=== PATIENT | male | born 1940 | race Caucasian/White ===

== ENCOUNTER → 2018-02-15 15:51 | Outpatient (CLI) | payer MEDICARE, SELFPAY ==
[2018-02-15 16:10] LABS: Mean Corp Hgb Conc 31.9 g/gl (32-36); Mean Corpuscular Hgb 30.6 pg (27.0-32.0); Mean Corpuscular Volume 95.9 fL (80-94); Mean Platelet Vol. 12.7 fl (6.2-12.0); Platelet Count 195 K/mm3 (150-450); RBC Distribution Width CV 13.5 % (11.6-14.6); RBC Distribution Width SD 47.4 fl (35.1-43.9); Red Blood Count 6.12 M/mm3 (4.6-6.2); White Blood Count 9.4 K/mm3 (4.4-11.0)
[2018-02-15 16:15] LABS: Hematocrit 58.7 % (40-54)
[2018-02-15 16:16] LABS: Scan Indicated on CBC? Y/N NO
[2018-02-15 16:21] LABS: Hemoglobin 18.7 g/dl (13.0-16.5)
[2018-02-15 16:28] LABS: Hemoglobin A1c 6.4 % (4.2-6.3)
[2018-02-15 16:38] LABS: ALB/GLOB Ratio 1.1 RATIO (0.9-2.4); AST(SGOT) 25 U/L (15-37); Alanine Aminotransfer ALT/SGPT 41 U/L (16-61); Albumin, Serum 3.9 g/dL (3.2-5.0); Alkaline Phosphatase 117 U/L (45-117); Anion Gap 7 (5-15); BUN 18 mg/dL (7-18); BUN/Creat Ratio 17.6 RATIO (10-20); Calcium,Total 10.4 mg/dL (8.5-10.1); Chloride 105 mmol/L (98-107); Cholesterol 114 mg/dL (200); Creatinine, Serum 1.02 mg/dL (0.70-1.30); EST Glomerular Filtration Rate 75 mL/min (>60); Est Glom Filt Rate - Afr Amer 91 mL/min (>60); Globulin 3.4 g/dL (2.2-4.2); Glucose 105 mg/dL (74-106); High Density Lipoprotein 29 mg/dL; PSA,Total- Diagnostic 0.43 ng/mL (0.0-4.0); Potassium 4.8 mmol/L (3.5-5.1); Protein, Total 7.3 g/dL (6.4-8.2); Sodium Level 139 mmol/L (136-145); Triglycerides 106 mg/dL; Very Low Density Lipoprotein 21 mg/dL (5-40)
[2018-02-15 17:48] LABS: Absolute Lymphocyte Count 2.85 X10^3/ul (0.83-4.51); Absolute Neutrophil Count 6.9 X10^3/uL (2.0-7.7); Basophil# 0.05 X10^3/uL; Basophil% 0.4 % (0-1); Eosinophil# 0.16 X10^3/uL; Eosinophils% 1.4 % (0-5); Hematocrit 54.7 % (40-54); Hemoglobin 17.9 g/dl (13.0-16.5); Lymphocyte # 2.85 X10^3/ul (4.0); Lymphocyte % 25.5 % (19-41); Mean Corp Hgb Conc 32.7 g/gl (32-36); Mean Corpuscular Hgb 30.4 pg (27.0-32.0); Mean Platelet Vol. 11.9 fl (6.2-12.0); Monocyte% 10.8 % (0-10); Neutrophil # 6.88 X10^3/uL (2.7-7.7); Neutrophil % 61.7 % (47-70); Platelet Count 221 K/mm3 (150-450); RBC Distribution Width CV 13.5 % (11.6-14.6); RBC Distribution Width SD 45.6 fl (35.1-43.9); Red Blood Count 5.88 M/mm3 (4.6-6.2); White Blood Count 11.2 K/mm3 (4.4-11.0)
[2018-02-15 17:49] LABS: POSITIVE COUNT NO; POSITIVE DIFFERENTIAL NO; POSITIVE MORPHOLOGY NO
== END ==
PROVIDERS: Visit Provider Family Medicine
DX: I10 Essential (primary) hypertension (principal); E78.5 Hyperlipidemia, unspecified; N40.1 Benign prostatic hyperplasia with lower urinary tract symptoms; Z79.899 Other long term (current) drug therapy
CPT/HCPCS: 36415; 80053; 80061; 83036; 84153; 85025; 85027

== ENCOUNTER → 2018-02-20 15:57 | Outpatient (CLI) | payer MEDICARE, SELFPAY ==
[2018-02-20 16:03] LABS: Bacteria 0 SEEN /hpf (None Seen)
[2018-02-20 16:07] LABS: Absolute Lymphocyte Count 2.32 X10^3/ul (0.83-4.51); Absolute Neutrophil Count 5.8 X10^3/uL (2.0-7.7); Basophil# 0.05 X10^3/uL; Basophil% 0.5 % (0-1); Eosinophil# 0.12 X10^3/uL; Eosinophils% 1.3 % (0-5); Hematocrit 55.4 % (40-54); Lymphocyte # 2.32 X10^3/ul (4.0); Lymphocyte % 24.7 % (19-41); Mean Corp Hgb Conc 32.9 g/gl (32-36); Mean Corpuscular Hgb 30.4 pg (27.0-32.0); Mean Corpuscular Volume 92.5 fL (80-94); Mean Platelet Vol. 12.6 fl (6.2-12.0); Monocyte# 1.03 X10^3/uL; Neutrophil # 5.83 X10^3/uL (2.7-7.7); Neutrophil % 62.2 % (47-70); Platelet Count 204 K/mm3 (150-450); RBC Distribution Width CV 13.5 % (11.6-14.6); RBC Distribution Width SD 44.7 fl (35.1-43.9); Red Blood Count 5.99 M/mm3 (4.6-6.2); White Blood Count 9.4 K/mm3 (4.4-11.0)
[2018-02-20 16:08] LABS: Color, Urine Yellow (Yellow); Glucose, Dipstick Normal (Normal); Ketone-Dipstick Negative (Negative); Leukocyte Esterase-Dipstick Negative /ul (Negative); Nitrite-Dipstick Negative (Negative); Occult Blood-Urine Negative /ul (Negative); Protein-Dipstick 15 mg/dl (Negative); Urine Bilirubin Dipstick Negative (Negative); Urine Clarity Clear (Clear); Urine Urobilinogen 1 mg/dl (Normal)
[2018-02-20 16:09] LABS: POSITIVE COUNT NO; POSITIVE DIFFERENTIAL NO; POSITIVE MORPHOLOGY NO
[2018-02-20 16:10] LABS: Hemoglobin 18.2 g/dl (13.0-16.5)
[2018-02-20 16:20] LABS: Mucous, Urine RARE /hpf (<or=2+)
[2018-02-20 16:21] LABS: Hyaline Cast 0-5 SEEN /lpf (0-5); Squamous Epithelial Cells - UA 0-5 SEEN /hpf (0-5)
[2018-02-20 16:22] LABS: Red Blood Cells-Urine 0-5 SEEN /hpf (0-5); White Blood Cells 0-5 SEEN /hpf (0-5)
[2018-02-20 17:01] LABS: ALB/GLOB Ratio 1.1 RATIO (0.9-2.4); AST(SGOT) 28 U/L (15-37); Alanine Aminotransfer ALT/SGPT 42 U/L (16-61); Albumin, Serum 3.8 g/dL (3.2-5.0); Alkaline Phosphatase 111 U/L (45-117); Anion Gap 9 (5-15); BUN 18 mg/dL (7-18); BUN/Creat Ratio 18.2 RATIO (10-20); Calcium,Total 10.1 mg/dL (8.5-10.1); Chloride 106 mmol/L (98-107); Creatinine, Serum 0.99 mg/dL (0.70-1.30); EST Glomerular Filtration Rate 78 mL/min (>60); Est Glom Filt Rate - Afr Amer 94 mL/min (>60); Globulin 3.4 g/dL (2.2-4.2); Glucose 80 mg/dL (74-106); Potassium 4.4 mmol/L (3.5-5.1); Protein, Total 7.2 g/dL (6.4-8.2); Sodium Level 139 mmol/L (136-145)
[2018-02-21 09:05] LABS: PTHIN 291.6 pg/mL (18.4-80.1)
== END ==
PROVIDERS: Family Provider Family Medicine; PCP Family Medicine; Visit Provider Family Medicine
DX: N40.0 Benign prostatic hyperplasia without lower urinary tract symptoms (principal); E83.52 Hypercalcemia; D58.2 Other hemoglobinopathies
CPT/HCPCS: 80053; 81001; 82330; 83970; 85025; 87086; 87088

== ENCOUNTER → 2018-02-23 12:51 | Outpatient (CLI) | payer MEDICARE, SELFPAY ==
[2018-02-23 13:10] LABS: ALB/GLOB Ratio 1.2 RATIO (0.9-2.4); AST(SGOT) 24 U/L (15-37); Alanine Aminotransfer ALT/SGPT 42 U/L (16-61); Albumin, Serum 3.9 g/dL (3.2-5.0); Alkaline Phosphatase 122 U/L (45-117); Anion Gap 4 (5-15); BUN 22 mg/dL (7-18); BUN/Creat Ratio 19.5 RATIO (10-20); Calcium,Total 10.1 mg/dL (8.5-10.1); Chloride 106 mmol/L (98-107); Creatinine, Serum 1.13 mg/dL (0.70-1.30); EST Glomerular Filtration Rate 67 mL/min (>60); Est Glom Filt Rate - Afr Amer 81 mL/min (>60); Globulin 3.2 g/dL (2.2-4.2); Glucose 145 mg/dL (74-106); LDH 160 U/L (87-241); Potassium 4.5 mmol/L (3.5-5.1); Protein, Total 7.1 g/dL (6.4-8.2); Sodium Level 137 mmol/L (136-145); Uric Acid 8.3 mg/dL (3.5-7.2)
[2018-02-27 09:35] LABS: Hep C Antibodies <0.1 s/co ratio (0.0-0.9)
== END ==
PROVIDERS: Family Provider Family Medicine; PCP Family Medicine; Visit Provider Internal Medicine Hematology & Oncology
DX: D75.1 Secondary polycythemia (principal); I10 Essential (primary) hypertension; E78.5 Hyperlipidemia, unspecified; E66.9 Obesity, unspecified; Z68.34 Body mass index [BMI] 34.0-34.9, adult
CPT/HCPCS: 80053; 81270; 82668; 83615; 84550; 86803

== ENCOUNTER → 2018-05-04 12:15 | Outpatient (CLI) | payer MEDICARE, SELFPAY ==
[2018-05-04 12:45] LABS: Absolute Lymphocyte Count 2.38 X10^3/ul (0.83-4.51); Absolute Neutrophil Count 5.8 X10^3/uL (2.0-7.7); Basophil# 0.03 X10^3/uL; Basophil% 0.3 % (0-1); Eosinophil# 0.15 X10^3/uL; Eosinophils% 1.7 % (0-5); Hemoglobin 17.2 g/dl (13.0-16.5); Lymphocyte # 2.38 X10^3/ul (4.0); Lymphocyte % 26.3 % (19-41); Mean Corp Hgb Conc 31.9 g/gl (32-36); Mean Corpuscular Hgb 29.9 pg (27.0-32.0); Mean Corpuscular Volume 93.8 fL (80-94); Mean Platelet Vol. 12.2 fl (6.2-12.0); Monocyte# 0.64 X10^3/uL; Monocyte% 7.1 % (0-10); Neutrophil # 5.84 X10^3/uL (2.7-7.7); Neutrophil % 64.5 % (47-70); Platelet Count 194 K/mm3 (150-450); RBC Distribution Width CV 13.5 % (11.6-14.6); RBC Distribution Width SD 46.2 fl (35.1-43.9); Red Blood Count 5.76 M/mm3 (4.6-6.2); White Blood Count 9.1 K/mm3 (4.4-11.0)
[2018-05-04 12:46] LABS: POSITIVE COUNT NO; POSITIVE DIFFERENTIAL NO; POSITIVE MORPHOLOGY NO
[2018-05-04 12:53] LABS: BNP,B-Type NATRIURETIC PEPTIDE 30.1 pg/mL (0-100)
[2018-05-04 12:57] LABS: ALB/GLOB Ratio 1.1 RATIO (0.9-2.4); AST(SGOT) 17 U/L (15-37); Alanine Aminotransfer ALT/SGPT 35 U/L (16-61); Albumin, Serum 3.8 g/dL (3.2-5.0); Alkaline Phosphatase 87 U/L (45-117); Anion Gap 7 (5-15); BUN 20 mg/dL (7-18); BUN/Creat Ratio 18.9 RATIO (10-20); Calcium,Total 10.4 mg/dL (8.5-10.1); Chloride 108 mmol/L (98-107); Creatinine, Serum 1.06 mg/dL (0.70-1.30); EST Glomerular Filtration Rate 72 mL/min (>60); Est Glom Filt Rate - Afr Amer 87 mL/min (>60); Globulin 3.4 g/dL (2.2-4.2); Glucose 112 mg/dL (74-106); Potassium 4.7 mmol/L (3.5-5.1); Protein, Total 7.2 g/dL (6.4-8.2); Sodium Level 140 mmol/L (136-145)
== END ==
PROVIDERS: Family Provider Family Medicine; PCP Family Medicine; Visit Provider Family Medicine
DX: R06.09 Other forms of dyspnea (principal); I25.10 Atherosclerotic heart disease of native coronary artery without angina pectoris
CPT/HCPCS: 80053; 83880; 85025

== ENCOUNTER → 2018-05-14 10:57 | Outpatient (CLI) | payer MEDICARE, SELFPAY | PROVIDERS: Family Provider Family Medicine; PCP Family Medicine; Visit Provider Ophthalmology | DX: Z01.818 Encounter for other preprocedural examination (principal); Z53.9 Procedure and treatment not carried out, unspecified reason ==

== ENCOUNTER 2018-05-24 09:51 | Day surgery (SDC) | payer MEDICARE, SELFPAY ==
[2018-05-17 09:12] VITALS: BP 123/73; PULSE 66; RESP 16; TEMP 36.6; O2SAT 94; BMI 30.9
[2018-05-24 10:35] VITALS: BP 126/74; PULSE 87; RESP 18; TEMP 37.1; O2SAT 95; BMI 30.9
[2018-05-24 11:01] LABS: Bedside Glucose 109 mg/dL (70-110)
[2018-05-24] MEDS: Tetracaine 0.5% Ophthalmic Bottle 1 DRP (11:52)
[2018-05-24 12:20] VITALS: BP 126/74; BP 132/77; PULSE 70; RESP 16; TEMP 36.9; O2SAT 94
[2018-05-24 12:25] VITALS: BP 116/68; BP 126/74; PULSE 69; RESP 18; O2SAT 92
--- NOTE | 2018-05-24 12:28 | DCINST_ITS ---
Allergies/Adverse Reactions: Allergies codeine Allergy (Verified 05/17/18 09:05) unknown Medications to take at Discharge aspirin 81 mg tablet,delayed release 81 mg PO BID 11/02/17 nitroglycerin 0.4 mg sublingual tablet 0.4 mg SUBLINGUAL Q5M PRN 10 Days #2880 tab 11/02/17 metoprolol succinate ER 50 mg tablet,extended release 24 hr 50 mg PO BID 90 Days #180 tab 11/08/17 Clopidogrel Bisulfate [Clopidogrel] 75 mg PO DAILY 05/17/18 Lisinopril [Zestril] 5 mg PO BID 05/17/18 Metformin HCl [Glucophage Xr] 500 mg PO BID 05/17/18 Pravastatin [Pravachol] 40 mg PO DAILY 05/17/18 Tamsulosin HCl [Flomax] 0.4 mg PO DAILY 05/17/18 Cataract Instructions: -Take a pain reliever such as Tylenol, Aspirin or Ibuprofen if needed for eye aching or pain. If this is not enough relief for you pain, call your doctor (or the doctor outreach and education social worker), even at night. -You are scheduled for a follow-up appointment at [facility] the day after surgery. You should have someone drive you. -Transient pain and irritation are due to the incision that was made at the time of surgery and do not indicate any trouble. Our office numbers are . If there is no answer, or if it is after our normal business hours, call your surgeon. My home phone number is: Dr. Suzi Jarquin INSTRUCTIONS FOLLOWING TOPICAL ANESTHETIC CATARACT SURGERY Protect operated eye with glasses or metal shield at all times. Instill one drop of Polytrim (or other antibiotic drop), one drop of Prednisolone and one drop of Acular in the operated eye four times a day ( breakfast, lunch, dinner, and bedtime) until the doctor tells you to quit or decrease them. Wait 3-5 minutes between each drop. Please begin these immediately upon arriving at home. if your surgery is in t he afternoon, try to use the drops at least three more times the day of surgery and again the following morning before your appointment. INSTRUCTIONS FOLLOWING RETROBULBAR CATARACT SURGERY Keep the eye patch and metal shield on until you see your surgeon the day after surgery - these will be removed in the office that day. Do not drive while the patch is on your eye. You will be instructed about the use of drops for the operated eye at that visit. Primary Care Physician: Thomas Jara MD [Primary Care Provider] -
[2018-05-24 12:30] VITALS: BP 109/77; BP 126/74; PULSE 64; RESP 16; O2SAT 92
--- NOTE | 2018-05-24 12:30 | PCM.OP.BLANK ---
Operative Report Date of Procedure: 05/24/18 Preoperative Diagnosis: Cataract Left Eye, Persistent Miosis Postoperative Diagnosis: Same Procedure: Cataract Extraction via phacoemulsification with intraocular lens implant Left Eye- complex case with expansion of miotic pupil Anesthesia: Mac/topical Complications: none Estimated Blood Loss: none Indications for procedure: This is a 78 year old male with history of worsening vision in the left eye secondary to cataract. After discussion of the risks, benefits, and alternatives procedure the patient agreed to proceed with cataract extraction of the left eye. Description of procedure: The patient was brought to the operative room where a time out was performed prior to the start of the procedure. Anesthesia team induced light sedation, and the eye was prepped and draped in the normal sterile fashion for eye surgery. A saritha blade knife was used to create a paracentesis incision. Preservative free lidocaine followed by viscoelastic was introduced into the anterior chamber. A keratome was used to create a clear corneal biplanar incision at the temporal limbus. The pupil was noted to be persistently miotic, and patient was taking flomax for enlarged prostate, therefore a malyugian ring was inserted in order to capture and maintain pupillary dilation. A cystotome was used to begin the capsulorhexis, which was completed in a continuous curvilinear fashion using the capsulorhexis forceps. BSS on a lamar cannula was used to hydrate beneath the lens capsule until the lens was noted to be freely mobile in the capsular bag. Phacoemulsification was used to remove the lens in a divide and conquer technique. Irrigation and aspiration was used to remove the remaining cortical material. The capsular bag was inflated with provisc, and a tecnis PCBOO 21.0 diopter lens was placed in the capsular bag and adjusted using a ai hook. The malyugian ring was disinserted from the iris and removed from the anterior chamber. The remaining viscoelastic material was removed. The wounds were hydrated and noted to be watertight with the use of a wexcell sponge. The patient was taken to the recovery room in a stable condition with instructions to follow up in the clinic for the scheduled postoperative visit.
[2018-05-24 12:35] VITALS: BP 114/77; BP 126/74; PULSE 69; RESP 16; TEMP 36.7; O2SAT 92
[2018-05-24 13:15] VITALS: BP 114/77; BP 126/74; PULSE 69; RESP 16; TEMP 36.7; O2SAT 92
== END 2018-05-24 13:18 | disposition home or self-care (01) ==
LOC: SDC 09:57 → AC 10:01
PROVIDERS: Family Provider Family Medicine; PCP Family Medicine; Visit Provider Ophthalmology
PROC: (CPT 66982; principal; 2018-05-24 11:20)
DX: H25.813 Combined forms of age-related cataract, bilateral (principal); H43.811 Vitreous degeneration, right eye; H04.523 Eversion of bilateral lacrimal punctum; H10.45 Other chronic allergic conjunctivitis; H57.03 Miosis; E11.9 Type 2 diabetes mellitus without complications; I25.10 Atherosclerotic heart disease of native coronary artery without angina pectoris; I25.2 Old myocardial infarction; Z95.1 Presence of aortocoronary bypass graft; Z87.891 Personal history of nicotine dependence
CPT/HCPCS: 66982; 82962

== ENCOUNTER → 2018-05-29 20:00 | Outpatient (CLI) | payer MEDICARE, SELFPAY | PROVIDERS: Family Provider Family Medicine; PCP Family Medicine; Visit Provider Family Medicine | DX: G47.10 Hypersomnia, unspecified (principal) | CPT/HCPCS: 95810 ==

== ENCOUNTER 2018-06-14 11:08 | Day surgery (SDC) | payer MEDICARE, SELFPAY ==
[2018-06-14] VITALS (7 sets, daily range): BP systolic 107–138; BP diastolic 70–97; PULSE 72–85; RESP 16–18; TEMP 36.6–37.1; O2SAT 92–97; BMI 31.0
[2018-06-14 12:15] LABS: Bedside Glucose 90 mg/dL (70-110)
[2018-06-14] MEDS: Tetracaine 0.5% Ophthalmic Bottle 1 DRP OP (12:45)
--- NOTE | 2018-06-14 13:16 | DCINST_ITS ---
Allergies/Adverse Reactions: Allergies codeine Allergy (Verified 06/14/18 11:35) unknown Medications to take at Discharge aspirin 81 mg tablet,delayed release 81 mg PO BID 11/02/17 nitroglycerin 0.4 mg sublingual tablet 0.4 mg SUBLINGUAL Q5M PRN 10 Days #2880 tab 11/02/17 metoprolol succinate ER 50 mg tablet,extended release 24 hr 50 mg PO BID 90 Days #180 tab 11/08/17 Clopidogrel Bisulfate [Clopidogrel] 75 mg PO DAILY 05/17/18 Lisinopril [Zestril] 5 mg PO BID 05/17/18 Metformin HCl [Glucophage Xr] 500 mg PO BID 05/17/18 Pravastatin [Pravachol] 40 mg PO DAILY 05/17/18 Tamsulosin HCl [Flomax] 0.4 mg PO DAILY 05/17/18 Cataract Instructions: -Take a pain reliever such as Tylenol, Aspirin or Ibuprofen if needed for eye aching or pain. If this is not enough relief for you pain, call your doctor (or the doctor sheet metal contractor), even at night. -You are scheduled for a follow-up appointment at [facility] the day after surgery. You should have someone drive you. -Transient pain and irritation are due to the incision that was made at the time of surgery and do not indicate any trouble. Our office numbers are . If there is no answer, or if it is after our normal business hours, call your surgeon. My home phone number is: Dr. Suzi Jarquin INSTRUCTIONS FOLLOWING TOPICAL ANESTHETIC CATARACT SURGERY Protect operated eye with glasses or metal shield at all times. Instill one drop of Polytrim (or other antibiotic drop), one drop of Prednisolone and one drop of Acular in the operated eye four times a day ( breakfast, lunch, dinner, and bedtime) until the doctor tells you to quit or decrease them. Wait 3-5 minutes between each drop. Please begin these immediately upon arriving at home. if your surgery is in t he afternoon, try to use the drops at least three more times the day of surgery and again the following morning before your appointment. INSTRUCTIONS FOLLOWING RETROBULBAR CATARACT SURGERY Keep the eye patch and metal shield on until you see your surgeon the day after surgery - these will be removed in the office that day. Do not drive while the patch is on your eye. You will be instructed about the use of drops for the operated eye at that visit. Primary Care Physician: Thomas Jara MD [Primary Care Provider] -
--- NOTE | 2018-06-14 13:17 | PCM.OP.BLANK ---
Operative Report Date of Procedure: 06/14/18 Preoperative Diagnosis: Cataract Right Eye Postoperative Diagnosis: Same Procedure: Cataract Extraction via phacoemulsification with intraocular lens implant Right Eye, Complex Case- expansion of miotic pupil Anesthesia: Mac/topical Complications: none Estimated Blood Loss: none Indications for procedure: This is a 78 year old male with history of worsening vision in the right eye secondary to cataract. After discussion of the risks, benefits, and alternatives procedure the patient agreed to proceed with cataract extraction of the right eye. Description of procedure: The patient was brought to the operative room where a time out was performed prior to the start of the procedure. Anesthesia team induced light sedation, and the eye was prepped and draped in the normal sterile fashion for eye surgery. A saritha blade knife was used to create a paracentesis incision. Preservative free lidocaine followed by viscoelastic was introduced into the anterior chamber. A keratome was used to create a clear corneal biplanar incision at the temporal limbus. The pupil was noted to be persistently miotic and therefore a malyugian ring was inserted in order to maintain pupillary dilation and expand the pupil. A cystotome was used to begin the capsulorhexis, which was completed in a continuous curvilinear fashion using the capsulorhexis forceps. BSS on a lamar cannula was used to hydrate beneath the lens capsule until the lens was noted to be freely mobile in the capsular bag. Phacoemulsification was used to remove the lens in a divide and conquer technique. Irrigation and aspiration was used to remove the remaining cortical material. The capsular bag was inflated with provisc, and a tecnis PCBOO 21.5 diopter lens was placed in the capsular bag and adjusted using a ai hook. The malyugian ring was disinserted from the iris and removed from the anterior chamber uneventfully. The remaining viscoelastic material was removed. The wounds were hydrated and noted to be watertight with the use of a wexcell sponge. The patient was taken to the recovery room in a stable condition with instructions to follow up in the clinic for the scheduled postoperative visit.
== END 2018-06-14 14:03 | disposition home or self-care (01) ==
LOC: SDC 11:11 → AC 11:14
PROVIDERS: Family Provider Family Medicine; PCP Family Medicine; Visit Provider Ophthalmology
PROC: (CPT 66984; principal; 2018-06-14 12:35)
DX: H04.123 Dry eye syndrome of bilateral lacrimal glands (principal); H25.811 Combined forms of age-related cataract, right eye; N40.0 Benign prostatic hyperplasia without lower urinary tract symptoms; I25.10 Atherosclerotic heart disease of native coronary artery without angina pectoris; I10 Essential (primary) hypertension; Z95.1 Presence of aortocoronary bypass graft; Z87.891 Personal history of nicotine dependence; Z98.42 Cataract extraction status, left eye
CPT/HCPCS: 00142; 66984; 82962; J7120

== ENCOUNTER → 2018-06-22 20:30 | Outpatient (CLI) | payer MEDICARE, SELFPAY ==
[2018-06-22] MEDS: Zolpidem Tartrate 5 MG Tablet PO (22:00)
== END ==
PROVIDERS: Family Provider Family Medicine; PCP Family Medicine; Visit Provider Family Medicine
DX: G47.33 Obstructive sleep apnea (adult) (pediatric) (principal)
CPT/HCPCS: 95811

== ENCOUNTER → 2018-07-05 10:52 | Outpatient (CLI) | payer MEDICARE, SELFPAY ==
[2018-07-05 12:48] LABS: AST(SGOT) 23 U/L (15-37); Alanine Aminotransfer ALT/SGPT 42 U/L (16-61); Albumin, Serum 3.7 g/dL (3.2-5.0); Alkaline Phosphatase 70 U/L (45-117); Bilirubin, Direct 0.14 mg/dL (0.00-0.30); Cholesterol 101 mg/dL (200); Globulin 3.4 g/dL (2.2-4.2); High Density Lipoprotein 27 mg/dL; Protein, Total 7.1 g/dL (6.4-8.2); Triglycerides 78 mg/dL; Very Low Density Lipoprotein 16 mg/dL (5-40)
== END ==
PROVIDERS: Family Provider Family Medicine; PCP Family Medicine; Visit Provider Physician Assistant Medical
DX: I25.5 Ischemic cardiomyopathy (principal); I25.10 Atherosclerotic heart disease of native coronary artery without angina pectoris; E78.00 Pure hypercholesterolemia, unspecified
CPT/HCPCS: 36415; 80061; 80076

== ENCOUNTER → 2018-12-31 09:21 | Outpatient (CLI) | payer MEDICARE, SELFPAY ==
[2018-10-08 13:31] VITALS: BMI 30.2
[2018-12-31 13:17] LABS: AST(SGOT) 27 U/L (15-37); Alanine Aminotransfer ALT/SGPT 55 U/L (16-61); Alkaline Phosphatase 70 U/L (45-117); Cholesterol 95 mg/dL (200); High Density Lipoprotein 31 mg/dL; Triglycerides 74 mg/dL; Very Low Density Lipoprotein 15 mg/dL (5-40)
== END ==
PROVIDERS: Family Provider Family Medicine; PCP Family Medicine; Referring Provider Physician Assistant Medical; Visit Provider Physician Assistant Medical
DX: E78.5 Hyperlipidemia, unspecified (principal)
CPT/HCPCS: 36415; 80061; 80076

== ENCOUNTER → 2019-02-22 15:26 | Outpatient (CLI) | payer MEDICARE, SELFPAY ==
[2018-10-08 13:31] VITALS: BMI 30.2
[2019-02-22 16:07] LABS: Anion Gap 6 (5-15); BUN 23 mg/dL (7-18); BUN/Creat Ratio 20.2 RATIO (10-20); Chloride 104 mmol/L (98-107); Creatinine, Serum 1.14 mg/dL (0.70-1.30); EST Glomerular Filtration Rate 66 mL/min (>60); Est Glom Filt Rate - Afr Amer 80 mL/min (>60); Glucose 80 mg/dL (74-106); PSA,Total- Diagnostic 0.52 ng/mL (0.0-4.0); Potassium 4.5 mmol/L (3.5-5.1); Sodium Level 137 mmol/L (136-145); Uric Acid 9.2 mg/dL (3.5-7.2)
== END ==
PROVIDERS: Family Provider Family Medicine; PCP Family Medicine; Referring Provider Family Medicine; Visit Provider Family Medicine
DX: I10 Essential (primary) hypertension (principal); N40.0 Benign prostatic hyperplasia without lower urinary tract symptoms; M10.00 Idiopathic gout, unspecified site
CPT/HCPCS: 80048; 84153; 84550

== ENCOUNTER 2019-04-02 13:43 | Emergency (ER) | payer MEDICARE, SELFPAY ==
[2018-10-08 13:31] VITALS: BMI 30.2
[2019-04-02 13:45] VITALS: BP 141/71; PULSE 100; PULSE 107; RESP 18; TEMP 36.6; O2SAT 92; O2SAT 93; BMI 30.2
--- NOTE | 2019-04-02 15:28 | ED.VIS.GEN ---
History of Present Illness Chief Complaint: Wound Informant: Patient, Significant Other Onset: Days Context: Sudden Onset Timing: Continuous Quality: Large bruise medial proximal right leg and distal thigh Location: Read above Current Severity: Mild Maximum Severity: Mild Worsened by: Blunt trauma and antiplatelet medication Relieved by: nothing Associated Symptoms: No associated symptoms Narrative: Patient was sent to the emergency room because of bruise medial right lower extremity. He admits to blunt trauma. He is on aspirin and Plavix. He denies chest pain, shortness of breath. He denies orthostatic symptoms. He is on no anticoagulant. He denies paresthesia, anesthesia motor weakness. He has no other complaints. states they were sent for an ultrasound. also states that the office staff frightened her and told her to bring her immediately. Prior similar symptoms: No Recent Illness/Hospitalization: No - Past Medical History (1) Arteriosclerotic heart disease (ASHD) Status: Chronic Comment: CABG x 3 MOSS-LAD, SVG-PDA aand Ramus Marginals 04/10/2010:PCI-[facility]-Mid LAD 09/24/2009 (2) H/O coronary artery bypass surgery Status: Chronic Comment: CABG x 3 MOSS-LAD, SVG-PDA aand Ramus Marginals 04/10/2010 (3) HLD (hyperlipidemia) Status: Chronic (4) HTN (hypertension) Status: Chronic (5) Ischemic cardiomyopathy Status: Chronic (6) Paroxysmal atrial fibrillation Status: Chronic Past Medical History - Allergies and Home Meds Allergies/Adverse Reactions: Allergies codeine Allergy (Verified 04/02/19 13:44) unknown Primary Care Physician: Thomas Jara MD [Primary Care Provider] - Prior records reviewed: Yes Surgical History: noncontributory Lives: Spouse/ Significant Other Smoking Status: Former smoker Alcohol: None Review of Systems General: Denies: Chills, Fever, Malaise, Sweats Eyes: Denies: Visual changes - bilaterally, Blurred Vision - bilaterally, Diplopia ENT: Denies: Bilateral ear pain, Rhinorrhea, Sore throat Cardiovascular: Denies: Chest pain, Palpitations Respiratory: Denies: Dyspnea, Cough, Dyspnea on exertion Skin: Denies: Rash, Wounds Neurological: Denies: Weakness, Parasthesia, Numbness Hematologic: Denies: Easy bruising, Easy bleeding Allergy: Denies: Uticaria, Swelling of the mouth Physical Exam Vital Signs/Narrative: Vital Signs Temp Pulse Resp BP Pulse Ox 04/02/19 13:45 97.9 F 100 18 141/71 H 92 Inital Vital Signs reviewed: Yes General: Well nourished, Well developed, No Acute Distress Head: Normocephalic, Atraumatic Eyes: Perrl, EOMI. Negative for: Pale conjunctiva, Scleral icterus, - ENT: Moist mucous membranes, No rhinorrhea Neck: Supple, Nontender, No lymphadenopathy, No JVD Cardiovascular: Regular rate, Regular rhythm, No murmurs, Normal S1, Normal S2 Respiratory: No distress, CTA bilaterally, Chest nontender Extremities: Nontender, No edema, - - There is a large ecchymotic area. There is a small palpable hematoma distal anterior right thigh. The patella is not ballotable. Is no effusion. Is no laxity with varus valgus stress testing. Jose Juan's test is negative. DP and PT pulse are palpable. There is no evidence of infection. Skin: Normal color, No rash, Trauma. Negative for: Cyanosis, Jaundice Neurological: Alert, Oriented x3, Cranial nerves II-XII grossly intact, Normal Strength, Normal Sensation Psychological: Normal affect, Normal Mood Diagnostic/Tx/Re-eval Laboratory Results 04/02/19 16:03 WBC 11.4 H RBC 5.04 Hgb 15.1 Hct 46.3 MCV 91.9 MCH 30.0 MCHC 32.6 RDW 13.7 RDW Differential 45.5 H Plt Count 236 MPV 12.0 Immature Gran % (Auto) 0.200 Neut % (Auto) 69.1 Lymph % (Auto) 17.3 L [place] % (Auto) 11.3 H Eos % (Auto) 1.7 Baso % (Auto) 0.4 Absolute Neuts (auto) 7.9 H Absolute Lymphs (auto) 1.97 Total Counted Not Reportable - Medical Decision Making CBC was obtained to assess H&H as well as platelet count. Will reassess once laboratory tests are available. CBC is unremarkable. Patient has a hematoma secondary to minimal trauma because he is on Plavix and aspirin. Will discharge with appropriate home-going instructions ED Disposition - Plan for ED Patient: Disposition: Home or Assisted Living Diagnosis: Contusion of right lower leg, initial encounter, Traumatic hematoma of right lower leg Instructions: ED Contusion Lower Ext Referrals: Thomas Jara MD [Primary Care Provider] - 10-14 Days if not better
[2019-04-02 16:28] VITALS: BP 142/87; PULSE 82; RESP 16; O2SAT 96
[2019-04-02 16:31] LABS: Absolute Lymphocyte Count 1.97 X10^3/ul (0.83-4.51); Absolute Neutrophil Count 7.9 X10^3/uL (2.0-7.7); Basophil# 0.04 X10^3/uL; Basophil% 0.4 % (0-1); Eosinophil# 0.19 X10^3/uL; Eosinophils% 1.7 % (0-5); Hematocrit 46.3 % (40-54); Hemoglobin 15.1 g/dl (13.0-16.5); Lymphocyte # 1.97 X10^3/ul (4.0); Lymphocyte % 17.3 % (19-41); Mean Corp Hgb Conc 32.6 g/gl (32-36); Mean Corpuscular Volume 91.9 fL (80-94); Monocyte# 1.29 X10^3/uL; Monocyte% 11.3 % (0-10); Neutrophil # 7.91 X10^3/uL (2.7-7.7); Neutrophil % 69.1 % (47-70); Platelet Count 236 K/mm3 (150-450); RBC Distribution Width CV 13.7 % (11.6-14.6); RBC Distribution Width SD 45.5 fl (35.1-43.9); Red Blood Count 5.04 M/mm3 (4.6-6.2); White Blood Count 11.4 K/mm3 (4.4-11.0)
[2019-04-02 16:32] LABS: POSITIVE COUNT NO; POSITIVE DIFFERENTIAL NO; POSITIVE MORPHOLOGY NO
== END 2019-04-02 18:09 | disposition home or self-care (01) ==
PROVIDERS: Emergency Provider Emergency Medicine; Family Provider Family Medicine; PCP Family Medicine
DX: S80.11XA Contusion of right lower leg, initial encounter (principal); Y29.XXXA Contact with blunt object, undetermined intent, initial encounter; I48.0 Paroxysmal atrial fibrillation; I25.5 Ischemic cardiomyopathy; I10 Essential (primary) hypertension; E78.5 Hyperlipidemia, unspecified; I25.10 Atherosclerotic heart disease of native coronary artery without angina pectoris; Z95.1 Presence of aortocoronary bypass graft; Z88.5 Allergy status to narcotic agent; Z87.891 Personal history of nicotine dependence; Z79.02 Long term (current) use of antithrombotics/antiplatelets; Z79.82 Long term (current) use of aspirin
CPT/HCPCS: 36415; 85025; 99282

== ENCOUNTER → 2019-05-17 10:41 | Outpatient (CLI) | payer MEDICARE, SELFPAY ==
[2019-05-17 11:18] LABS: 24HR UR TOTAL VOLUME 2250 ml; Calcium Urine pH Range 1
== END ==
PROVIDERS: Family Provider Family Medicine; PCP Family Medicine
DX: E21.0 Primary hyperparathyroidism (principal)
CPT/HCPCS: 82340

== ENCOUNTER → 2019-06-17 12:25 | Outpatient (CLI) | payer MEDICARE, SELFPAY ==
[2019-06-17 14:16] LABS: Albumin, Serum 3.7 g/dL (3.2-5.0); BUN 18 mg/dL (7-18); BUN/Creat Ratio 16.2 RATIO (10-20); Calcium,Total 10.8 mg/dL (8.5-10.1); Chloride 106 mmol/L (98-107); Creatinine, Serum 1.11 mg/dL (0.70-1.30); EST Glomerular Filtration Rate 68 mL/min (>60); Est Glom Filt Rate - Afr Amer 82 mL/min (>60); Glucose 104 mg/dL (74-106); Potassium 4.8 mmol/L (3.5-5.1); Sodium Level 140 mmol/L (136-145)
== END ==
PROVIDERS: Family Provider Family Medicine; PCP Family Medicine
DX: E21.0 Primary hyperparathyroidism (principal); E55.9 Vitamin D deficiency, unspecified
CPT/HCPCS: 80069; 82306

== ENCOUNTER → 2019-08-27 09:06 | Outpatient (CLI) | payer MEDICARE, SELFPAY ==
[2019-07-18 12:37] VITALS: BMI 29.4
[2019-08-27 11:08] LABS: AST(SGOT) 25 U/L (15-37); Alanine Aminotransfer ALT/SGPT 50 U/L (16-61); Albumin, Serum 3.8 g/dL (3.2-5.0); Alkaline Phosphatase 75 U/L (45-117); Bilirubin, Direct 0.16 mg/dL (0.00-0.30); Cholesterol 116 mg/dL (200); High Density Lipoprotein 30 mg/dL; Protein, Total 6.8 g/dL (6.4-8.2); Triglycerides 90 mg/dL; Very Low Density Lipoprotein 18 mg/dL (5-40)
== END ==
PROVIDERS: Family Provider Family Medicine; PCP Family Medicine; Referring Provider Internal Medicine Cardiovascular Disease; Visit Provider Internal Medicine Cardiovascular Disease
DX: E78.00 Pure hypercholesterolemia, unspecified (principal)
CPT/HCPCS: 36415; 80061; 80076

== ENCOUNTER → 2020-08-25 | Outpatient (CLI) | payer MEDICARE, SELFPAY ==
[2019-07-18 12:37] VITALS: BMI 29.4
[2020-08-25 12:58] LABS: ALB/GLOB Ratio 1.1 RATIO (0.9-2.4); AST(SGOT) 24 U/L (15-37); Alanine Aminotransfer ALT/SGPT 51 U/L (16-61); Albumin, Serum 3.8 g/dL (3.2-5.0); Alkaline Phosphatase 77 U/L (45-117); Anion Gap 2 (5-15); BUN 18 mg/dL (7-18); BUN/Creat Ratio 16.7 RATIO (10-20); Calcium,Total 11.1 mg/dL (8.5-10.1); Chloride 106 mmol/L (98-107); Cholesterol 104 mg/dL (200); Creatinine, Serum 1.08 mg/dL (0.70-1.30); EST Glomerular Filtration Rate 70 mL/min (>60); Est Glom Filt Rate - Afr Amer 84 mL/min (>60); Globulin 3.4 g/dL (2.2-4.2); Glucose 117 mg/dL (74-106); High Density Lipoprotein 36 mg/dL; PSA,Total - Annual Screen 0.23 ng/mL (0.00-4.00); Potassium 4.4 mmol/L (3.5-5.1); Protein, Total 7.2 g/dL (6.4-8.2); Sodium Level 139 mmol/L (136-145); Triglycerides 80 mg/dL; Very Low Density Lipoprotein 16 mg/dL (5-40)
[2020-08-25 12:59] LABS: Hemoglobin A1c 5.7 % (3.8-5.6)
== END | disposition home or self-care (01) ==
LOC: LABSPEC 12:09
PROVIDERS: PCP Family Medicine; Referring Provider Family Medicine; Visit Provider Family Medicine
DX: N40.0 Benign prostatic hyperplasia without lower urinary tract symptoms (principal); R73.03 Prediabetes
CPT/HCPCS: 80053; 80061; 83036; 84153; G0103

== ENCOUNTER → 2020-09-18 06:32 | Outpatient (CLI) | payer MEDICARE, SELFPAY ==
[2020-09-01 15:06] VITALS: BMI 29.9
--- NOTE | 2020-09-18 06:33 | ECHOCS_ITS ---
Reason For Study: S/P CABG Procedure This was a 2D Doppler, Color Flow transthoracic echocardiogram. The study was technically difficult. Due to poor accoustic windows. Contrast injection was performed. Exam performed in department. Left Ventricle Normal LV size. Left ventricular systolic function is normal. The estimated ejection fraction is 65 %. Stage 1 diastolic dysfunction. No regional wall motion abnormalities noted. Right Ventricle Normal RV size. Normal systolic function. Atria Normal left atrium. Normal right atrium. Mitral Valve Normal mitral valve. Tricuspid Valve Normal tricuspid valve. Aortic Valve Trisinus/trileaflet aortic valve. Mild focal aortic valve calcification. Pulmonic Valve Normal pulmonic valve. Great Vessels Normal aortic root. The pulmonary artery is normal size. Normal inferior vena cava. Pericardium/Pleural No pericardial effusion. Medication 22 gauge I.V. with prn adaptor inserted into right arm. Diluted definity 3.0ml given slow IV push to enhance endocardial definition. MMode/2D Measurements & Calculations LVIDd: 4.5 cm IVSd: 1.1 cm Ao root diam: 3.2 cm LVIDs: 3.3 cm LVPWd: 1.0 cm FS: 28.4 % LAV(MOD-bp): 46.3 ml LA A4 area: 17.3 cm2 LA dimension(2D): 3.8 cm LAV(MOD-bp) Indexed: 23.5 ml/m2 LAV(MOD-sp2): 45.9 ml LAV(MOD-sp4): 45.8 ml Time Measurements MV dec time: 0.14 sec Doppler Measurements & Calculations MV E max dashawn: 60.0 cm/sec Lat Peak E' Dashawn: 11.9 cm/sec Med Peak E' Dashawn: 6.6 cm/sec MV A max dashawn: 95.1 cm/sec E/E' lat: 5.0 E/E' med: 9.1 MV E/A: 0.63 Ao V2 max: 164.2 cm/sec LV V1 max: 116.0 cm/sec PA V2 max: 104.5 cm/sec Ao max P.8 mmHg LV V1 max P.4 mmHg Interpretation Summary Normal LV size. Left ventricular systolic function is normal. The estimated ejection fraction is 65 %. Stage 1 diastolic dysfunction. Contrast injection was performed. Ordering Physician: Sravan Jc Referring Physician: enrique Jara Performed By: Dorcas Hogan, ROGERIO, RVT
--- NOTE | 2020-09-18 12:53 | STRESSREP_ITS ---
Stress Test Report Pharmacologic myocardial perfusion stress test. 80-year-old man with a history of coronary artery bypass surgery. Stress protocol: Resting EKG demonstrates sinus rhythm with a rate of 81 bpm resting blood pressure is 130/70 mmHg. 0.4 mg of regadenoson was infused per usual protocol followed by rapid intravenous saline flush injection continuous EKG monitoring was performed. The maximum heart rate attained was 113 bpm which was 81% of max impacted heart rate the maximum workload was 1 metabolic equivalent. At rest there were no ST or T wave changes noted suggest abnormal flow reserve at peak infusion nonspecific ST-T wave changes were noted. The final blood pressure was 128/82 mmHg. Myocardial perfusion protocol. 11.3 mCi of technetium 99m sestamibi was injected at rest. 0.4 mg of regadenoson was infused per usual protocol at peak infusion 31.7 mCi of technetium 99m sestamibi was injected stress images were obtained stress and rest images were reconstructed and compared in the short axis vertical long horizontal long axis. Gated images were also obtained. Perfusion SPECT analysis: Review of the stress images demonstrate normal uptake of tracer noted in all areas of the myocardium the resting images similarly demonstrate normal uptake of tracer noted in all areas of the myocardium. No reversibility is noted guzman ggest ischemia no previous infarct is noted. Gated SPECT analysis: The gated ejection fraction is 75%. Conclusion: Normal pharmacologic myocardial perfusion stress test. Preserved ejection fraction.
== END ==
PROVIDERS: PCP Family Medicine; Referring Provider Internal Medicine Cardiovascular Disease; Visit Provider Internal Medicine Cardiovascular Disease
DX: I25.118 Atherosclerotic heart disease of native coronary artery with other forms of angina pectoris (principal); Z95.1 Presence of aortocoronary bypass graft
CPT/HCPCS: 78452; 93017; 93306; A9500; Q9957; A4216; C8929; J2785

== ENCOUNTER → 2021-03-01 11:45 | Outpatient (CLI) | payer MEDICARE, SELFPAY ==
[2020-09-01 15:06] VITALS: BMI 29.9
[2021-03-01 12:31] LABS: Hemoglobin A1c 5.7 % (3.8-5.6)
== END ==
PROVIDERS: PCP Family Medicine; Referring Provider Family Medicine; Visit Provider Family Medicine
DX: R73.03 Prediabetes (principal)
CPT/HCPCS: 83036

== ENCOUNTER → 2021-03-09 16:11 | Outpatient (CLI) | payer MEDICARE, SELFPAY ==
[2020-09-01 15:06] VITALS: BMI 29.9
[2021-03-09 17:56] LABS: Vitamin D,25 Hydroxy 59.9 ng/mL
[2021-03-10 09:14] LABS: PTHIN 139.1 pg/mL (18.4-80.1)
== END ==
PROVIDERS: PCP Family Medicine
DX: E55.9 Vitamin D deficiency, unspecified (principal); E21.0 Primary hyperparathyroidism
CPT/HCPCS: 82306; 83970

== ENCOUNTER → 2021-03-11 | Outpatient (CLI) | payer MEDICARE, SELFPAY ==
[2020-09-01 15:06] VITALS: BMI 29.9
[2021-03-11 15:06] LABS: 24HR UR TOTAL VOLUME 750 ml; Calcium Urine pH Range 1; Urine Calcium (Random) < 5.0 (Not Estab.)
[2021-03-12 06:16] LABS: (24 HR) Urine Calcium < 5.0 mg/24 HR (42.0-353.0)
== END | disposition home or self-care (01) ==
LOC: LABSPEC 13:38
PROVIDERS: PCP Family Medicine
DX: E83.52 Hypercalcemia (principal)
CPT/HCPCS: 81050; 82340

== ENCOUNTER → 2021-09-02 09:44 | Outpatient (CLI) | payer MEDICARE, SELFPAY ==
[2021-09-02 11:10] LABS: AST(SGOT) 12 U/L (15-37); Alanine Aminotransfer ALT/SGPT 28 U/L (16-61); Albumin, Serum 3.5 g/dL (3.2-5.0); Alkaline Phosphatase 70 U/L (45-117); Bilirubin, Direct 0.18 mg/dL (0.00-0.30); Cholesterol 93 mg/dL (200); Globulin 3.2 g/dL (2.2-4.2); High Density Lipoprotein 30 mg/dL; Protein, Total 6.7 g/dL (6.4-8.2); Triglycerides 89 mg/dL; Very Low Density Lipoprotein 18 mg/dL (5-40)
== END ==
PROVIDERS: PCP Family Medicine; Referring Provider Internal Medicine Cardiovascular Disease; Visit Provider Internal Medicine Cardiovascular Disease
DX: E78.00 Pure hypercholesterolemia, unspecified (principal)
CPT/HCPCS: 36415; 80061; 80076

== ENCOUNTER → 2021-09-08 12:22 | Outpatient (CLI) | payer MEDICARE, SELFPAY ==
[2021-09-08 13:24] LABS: Uric Acid 8.7 mg/dL (3.5-7.2)
[2021-09-08 13:34] LABS: Hemoglobin A1c 5.6 % (3.8-5.6)
== END ==
PROVIDERS: PCP Family Medicine; Referring Provider Nurse Practitioner Primary Care; Visit Provider Nurse Practitioner Primary Care
DX: M10.00 Idiopathic gout, unspecified site (principal); R73.03 Prediabetes
CPT/HCPCS: 83036; 84550

== ENCOUNTER → 2021-10-25 11:53 | Outpatient (CLI) | payer MEDICARE, SELFPAY ==
[2021-10-25 12:38] LABS: Uric Acid 7.7 mg/dL (3.5-7.2)
== END ==
PROVIDERS: PCP Family Medicine; Visit Provider Nurse Practitioner Primary Care
DX: E79.0 Hyperuricemia without signs of inflammatory arthritis and tophaceous disease (principal)
CPT/HCPCS: 84550

== ENCOUNTER 2022-08-22 14:32 | Emergency (ER) | payer MEDICARE, SELFPAY ==
[2022-08-22 14:34] VITALS: BP 129/115; PULSE 99; RESP 18; TEMP 36.2; O2SAT 92; BMI 26.6
--- NOTE | 2022-08-22 14:50 | RAD_ITS ---
STUDY: X-RAY - RIGHT SHOULDER REASON FOR EXAM: Male, 82 years old. Fall TECHNIQUE: 3 view(s) of the shoulder. COMPARISON: None. FINDINGS: There is moderate degenerative arthrosis of the glenohumeral articulation. There is hypertrophic osteoarthrosis of the acromioclavicular joint with inferior osseous spur formation. Decreased distance between the humeral head and acromion suggests rotator cuff pathology. Normal humeral head and visualized proximal humerus. The soft tissue structures are unremarkable. Normal visualized pulmonary apex. 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 Decreased space between the humeral head and acromion suggestive of rotator cuff pathology. Electronically Signed: Sam Ortiz MD at 15:08 EDT ,
--- NOTE | 2022-08-22 15:15 | ED.VIS.FALL ---
HPI HPI - Fall History of Present Illness Chief Complaint: Fall Informant: patient Occured/Mechanism Occurred: Today Mechanism/Context: Yes same level fall and Yes trip Narrative: Tripped on a rock in his yard while he was cleaning up debris Usually ambulates: Without assistance Pain/Injury Pain Location: face and upper extremity (R shoulder) Quality of Pain: Aching Current Severity: Mild Maximum Severity: Severe Worsened by: intermittent severe spontaneous pain Relieved by: resting in sling since injury Associated Symptoms Associated Symptoms: Negative for Parasthesias, Weakness, Inability to ambulate, Loss of consciousness or Amnesia Narrative Narrative: Patient tripped and fell to his right shoulder, and then subsequently scraped his face on the nearby gravel. He denies significant pain in his face, main injury is his right shoulder. Denies a headache or loss of consciousness. No changes in his vision. [id number]. Denies any other injury has been ambulatory since the injury brought by EMS. He takes aspirin and clopidogrel for cardiac reasons. He has had no epistaxis. He denies any numbness or tingling in his extremities. 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) Postoperative atrial fibrillation (06/2010) Tachycardia Type 2 diabetes mellitus Home Medications aspirin 81 mg tablet,delayed release (Adult Low Dose Aspirin) 81 mg PO BID 11/02/17 [History Last Taken Unknown] metformin 500 mg tablet,extended release 24 hr 500 mg PO BID 05/17/18 [History Last Taken Unknown] tamsulosin 0.4 mg capsule 0.4 mg PO DAILY 05/17/18 [History Last Taken Unknown] allopurinol 100 mg tablet 100 mg PO DAILY PRN 10/08/18 [History Last Taken Unknown] finasteride 5 mg tablet 5 mg PO DAILY #90 tabs 07/18/19 [History Last Taken Unknown] cholecalciferol (vitamin D3) 1,250 mcg (50,000 unit) capsule 1,250 mcg PO QWEEK 09/01/20 [History Last Taken Unknown] colchicine 0.6 mg capsule 0.6 mg PO BID PRN 09/01/20 [History Last Taken Unknown] cinacalcet 30 mg tablet 30 mg PO DAILY 09/02/21 [History Last Taken Unknown] clopidogrel 75 mg tablet 75 mg PO DAILY #90 tabs 01/17/22 [Rx Last Taken Unknown] lisinopril 2.5 mg tablet 2.5 mg PO DAILY #90 tabs 01/17/22 [Rx Last Taken Unknown] metoprolol succinate 50 mg tablet,extended release 24 hr 50 mg PO BID #180 tabs 01/17/22 [Rx Last Taken Unknown] pravastatin 40 mg tablet 40 mg PO DAILY #90 tabs 01/17/22 [Rx Last Taken Unknown] nitroglycerin 0.4 mg sublingual tablet 0.4 mg sublingual Q5-15M #25 tabs 03/01/22 [Rx Last Taken Unknown] Allergy/AdvReac Type Severity Reaction Status Date / Time codeine AdvReac Other Verified 08/22/22 14:34 Family History Father CHF (congestive heart failure) Mother Cancer Lung CA Brother Hypertension Multiple sclerosis Brother Hx of CABG Brother Hx of CABG Diabetes Brother Multiple sclerosis Sister CHF (congestive heart failure) Son Diabetes Surgical History Amputation finger (~1958) H/O coronary artery bypass surgery (06/10/10) History of cataract extraction (~05/2018) History of coronary artery stent placement (09/24/09) Social History Smoking Status: Former smoker how long ago did patient quit smokin years ago alcohol intake: never substance use type: does not use diet: low salt caffeine: Yes Type: coffee Number of servings: 1 what type of physical activity do you participate in: none ROS ROS ED Constitutional Constitutional ED: Denies chills or fever(s) Eyes Eyes: Denies change in vision or diplopia ENT ENT ED: Denies ear pain, epistaxis, facial pain or rhinorrhea Cardiovascular Cardiovascular: Denies chest pain or palpitations Respiratory/Chest Respiratory/Chest: Denies cough or dyspnea Gastrointestinal Gastrointestinal: Denies abdominal pain, diarrhea, melena, nausea or vomiting Genitourinary Genitourinary ED: Denies dysuria or hematuria Musculoskeletal Musculoskeletal: Reports extremity pain; Denies back pain or neck pain Integumentary Reports Abrasions; Denies abscess, laceration or rash Neurologic Neurologic: Denies confusion, headache(s), paresthesias or weakness EXAM Physical Exam Const Vital Signs: 08/22/22 14:34 08/22/22 15:03 Temperature 97.1 F L Temperature Source Temporal Pulse Rate 99 Respiratory Rate 18 Respiratory Effort Normal Respiratory Depth Normal Respiratory Pattern Normal Blood Pressure 129/115 H Blood Pressure Mean 119 Pulse Ox 92 Oxygen Delivery Method Room Air Room Air Positive well nourished and well developed General Appearance ED: well developed and NAD HEENT Reports TM's clear and nasal mucous membranes and turbinates normal HEENT Narrative: Abrasion with some swelling over the nose as well as the upper lip and the forehead just medial to the right eyebrow. No lacerations requiring repair. No bony tenderness including the nose. No sign of epistaxis. Midface stable and nontender. Face and Sinus: Negative for facial tenderness Tympanic Membrane ED: Yes TM's clear Eyes PERRL and EOMs intact bilaterally Visual Acuity: other Other Details: no entrapment or pain with extraocular movements Neck full ROM and supple General: Negative for tenderness Chest Wall inspection of chest normal and palpation of chest normal Chest: symmetrical chest wall rise; Negative for crepitus or tenderness Resp normal respiratory effort and clear to auscultation bilaterally Percussion: other equal BS bilat Cardio no murmurs Rate: regular rate Rhythm: regular rhythm GI normal to inspection, nondistended, normoactive bowel sounds, soft to palpation and non-tender Back/Spine normal ROM Cervical Spine: Negative for cervical spine tenderness Thoracic Spine / Upper Back: Negative for thoracic spinal tenderness Lumbar Spine / Lower Back: Negative for lumbar spinal tenderness Extremity normal to inspection and full ROM Extremity Narrative: Mildly tender proximal right humerus but not the acromion, clavicle or the acromioclavicular joint. The scapula is nontender, as are the other 3 extremities. Taking the patient out of his sling right upper extremity, he can move his shoulder in all directions including abduction fully. He has intermittent spasms of pain while resting but not with movement. There are no deformities. Neurovascularly intact distally sensory and motor. General Extremety ED: Yes tenderness Neuro oriented x3, CN's II-XII intact bilaterally, moves all extremities, no focal motor deficits and no sensory deficits noted [place] Coma Scale: document GCS findings Spontaneous Obeys Commands Oriented 15 Sensorium / Orientation: awake and alert Psych mental status grossly normal and thought process normal Skin no wounds Lesions: no lesions Rashes: no rashes MDM MDM MDM Narrative Medical decision making narrative: 3 views of the right shoulder x-ray series of my interpretation shows no acute fracture or dislocation. Radiology interpretation is in agreement. I think the patient is having traumatic muscle spasms given his excellent range of motion and this x-ray. He was offered analgesics and he declines, saying that he takes Tylenol daily for arthritis and he will continue to do that and ice the area. He was given an injection of Norflex after discussing pros and cons of that, and will discharge him home with family. Discussed outpatient follow-up if continues to have issues, internal derangement including traumatic bursitis is in the differential but thought to be less likely given his excellent painless range of motion. Radiography Diagnostic Testing: Clinical Impression(s) from Imaging Studies Shoulder X-Ray 08/22/22 14:50 IMPRESSION: Glenohumeral osteoarthritis. Hypertrophic osteoarthritis of the glenohumeral joint. Decreased space between the humeral head and acromion suggestive of rotator cuff pathology. Electronically Signed: Sam Ortiz MD at 15:08 EDT , Discharge Plan Triage Chief Complaint: Fall ED Provider: Dat Acosta Dx/Rx/DC Orders Clinical Impression: Injury of right shoulder, Muscle spasm of right shoulder, Abrasion of face, Fall from slip, trip, or stumble Instructions: ED Shoulder Contusion Prescriptions: No Action aspirin [Adult Low Dose Aspirin] 81 mg tablet,delayed release (DR/EC) 81 mg PO BID allopurinol 100 mg tablet 100 mg PO DAILY PRN finasteride 5 mg tablet 5 mg PO DAILY Qty: 90 cholecalciferol (vitamin D3) 1,250 mcg (50,000 unit) capsule 1,250 mcg PO QWEEK colchicine 0.6 mg capsule 0.6 mg PO BID PRN cinacalcet 30 mg tablet 30 mg PO DAILY tamsulosin 0.4 MG capsule 0.4 mg PO DAILY metformin 500 MG tablet extended release 24 hr 500 mg PO BID clopidogrel 75 mg tablet 75 mg PO DAILY Qty: 90 3RF lisinopril 2.5 mg tablet 2.5 mg PO DAILY Qty: 90 3RF metoprolol succinate 50 mg tablet extended release 24 hr 50 mg PO BID Qty: 180 3RF pravastatin 40 mg tablet 40 mg PO DAILY Qty: 90 3RF nitroglycerin 0.4 mg tablet, sublingual 0.4 mg SUBLINGUAL Q5-15M Qty: 25 3RF Primary Care Provider: Thomas Jara Referrals: Thomas Jara MD [Primary Care Provider] - 1 Week if not improving Activity Restrictions/Additional Instructions: Apply ice as needed to the affected area for the next 2 days, if it seems to help you may continue doing it as long as you are able to move it around well. If it gets stiff then switch to heat. Using Tylenol as needed is okay in addition. Avoid ibuprofen since you are on blood thinners. Disposition Disposition: Home, Self Care
[2022-08-22] MEDS: Orphenadrine 60 MG/2 ML Ampul IM (15:21)
== END 2022-08-22 15:58 | disposition home or self-care (01) ==
PROVIDERS: Emergency Provider Emergency Medicine; PCP Family Medicine; Visit Provider Emergency Medicine
DX: S40.911A Unspecified superficial injury of right shoulder, initial encounter (principal); E11.9 Type 2 diabetes mellitus without complications; I10 Essential (primary) hypertension; Z87.891 Personal history of nicotine dependence; I25.10 Atherosclerotic heart disease of native coronary artery without angina pectoris; I25.5 Ischemic cardiomyopathy; E78.5 Hyperlipidemia, unspecified; G47.33 Obstructive sleep apnea (adult) (pediatric); I25.2 Old myocardial infarction; Z79.82 Long term (current) use of aspirin; R25.2 Cramp and spasm; W01.118A Fall on same level from slipping, tripping and stumbling with subsequent striking against other sharp object, initial encounter; S00.81XA Abrasion of other part of head, initial encounter
CPT/HCPCS: 73030; 96372; 99284

== ENCOUNTER 2023-06-13 10:52 | Emergency (ER) | payer MEDICARE, SELFPAY ==
[2023-06-13 10:53] VITALS: BP 152/80; PULSE 76; RESP 16; TEMP 36.4; O2SAT 97; BMI 27.4
[2023-06-13] MEDS: Oxymetazoline 0.05% 1 SPRAY SPRAY.BTL NASAL (11:21)
--- NOTE | 2023-06-13 12:03 | EDS_ITS ---
HPI History of Present Illness Chief Complaint: Nosebleed Informant: patient Narrative Narrative: Patient presents referred over from urgent care for nasal bleeding. Started 6 AM this morning. He is on aspirin Plavix for history of coronary disease. Denies any digital manipulation. He states he gets intermittent nosebleeds that he can control. Is been persistent today. He had a nasal packing 5 years ago followed up for packing removal he is unclear with home. He did take his aspirin and Plavix today at 9 AM. 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) Postoperative atrial fibrillation (06/2010) Tachycardia Type 2 diabetes mellitus Home Medications aspirin 81 mg tablet,delayed release (Adult Low Dose Aspirin) 81 mg PO BID 11/02/17 [History Last Taken Unknown] metformin 500 mg tablet,extended release 24 hr 500 mg PO BID 05/17/18 [History Last Taken Unknown] tamsulosin 0.4 mg capsule 0.4 mg PO DAILY 05/17/18 [History Last Taken Unknown] finasteride 5 mg tablet 5 mg PO DAILY #90 tabs 07/18/19 [History Last Taken Unknown] nitroglycerin 0.4 mg sublingual tablet 0.4 mg sublingual Q5-15M #25 tabs 03/01/22 [Rx Last Taken Unknown] allopurinol 100 mg tablet 100 mg PO DAILY 09/01/22 [History Last Taken Unknown] cholecalciferol (vitamin D3) 100 mcg (4,000 unit) tablet 100 mcg PO DAILY 09/01/22 [History Last Taken Unknown] cinacalcet 60 mg tablet 60 mg PO DAILY 09/01/22 [History Last Taken Unknown] clopidogrel 75 mg tablet 75 mg PO DAILY #90 tabs 09/01/22 [Rx Last Taken Unknown] lisinopril 2.5 mg tablet 2.5 mg PO DAILY #90 tabs 09/01/22 [Rx Last Taken Unknown] metoprolol succinate 50 mg tablet,extended release 24 hr 50 mg PO BID #180 tabs 09/01/22 [Rx Last Taken Unknown] pravastatin 40 mg tablet 40 mg PO DAILY #90 tabs 09/01/22 [Rx Last Taken Unknown] Allergy/AdvReac Type Severity Reaction Status Date / Time codeine AdvReac Other Verified 06/13/23 10:53 Family History Father CHF (congestive heart failure) Mother Cancer Lung CA Brother Hypertension Multiple sclerosis Brother Hx of CABG Brother Hx of CABG Diabetes Brother Multiple sclerosis Sister CHF (congestive heart failure) Son Diabetes Surgical History Amputation finger (~195) H/O coronary artery bypass surgery (06/10/10) History of cataract extraction (~05/2018) History of coronary artery stent placement (09/24/09) Social History Smoking Status: Former smoker how long ago did patient quit smokin years ago alcohol intake: never substance use type: does not use diet: low salt caffeine: Yes Type: coffee Number of servings: 1 what type of physical activity do you participate in: none ROS ROS ED Constitutional Constitutional ED: Denies chills, fever(s) or sweats Eyes Eyes: Denies change in vision ENT ENT ED: Reports other Details: Left-sided epistaxis ; Denies dysphagia or sore throat Cardiovascular Cardiovascular: Denies chest pain, leg edema, palpitations or racing heartbeat Respiratory/Chest Respiratory/Chest: Denies cough, dyspnea or dyspnea on exertion Gastrointestinal Gastrointestinal: Denies abdominal pain, diarrhea, nausea or vomiting Genitourinary Genitourinary ED: Denies dysuria, hematuria or urinary frequency Musculoskeletal Musculoskeletal: Denies back pain, extremity pain or neck pain Integumentary Denies rash or wounds Neurologic Neurologic: Denies headache(s), paresthesias or weakness EXAM Physical Exam Const Vital Signs: 06/13/23 10:53 Temperature 97.5 F L Temperature Source Temporal Pulse Rate 76 Respiratory Rate 16 Blood Pressure 152/80 H Blood Pressure Mean 104 Pulse Ox 97 Positive well nourished and well developed General Appearance ED: well developed and NAD HEENT Reports moist mucous membranes HEENT Narrative: Call on bilateral side with blood soaked on the left side. This was removed with clots behind this. 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 No active bleeding noted. Dried blood in the posterior pharynx. normocephalic and atraumatic Eyes PERRL, EOMs intact bilaterally and conjunctivae normal General Eye ED: Yes normal appearance of both eyes Neck no lymphadenopathy and supple General: Negative for tenderness Chest Wall Chest: Negative for tenderness Resp normal respiratory effort and normal air movement Effort and Inspection: symmetric chest movement; Negative for respiratory distress Cardio regular rate, regular rhythm and no murmurs Peripheral Pulses: pulses 2+ throughout GI normal to inspection, nondistended, normoactive bowel sounds and non-tender Palpation: Negative for guarding or rebound tenderness present Back/Spine no CVA tenderness and no thoracic nor lumbar tenderness Extremity normal to inspection General Extremety ED: Negative for edema or tenderness General Extremity: Negative for edema Neuro oriented x3 and no sensory deficits noted Sensorium / Orientation: awake and alert Skin no rashes or lesions noted and no wounds MDM MDM MDM Narrative Medical decision making narrative: Interventions / MDM: Differential diagnosis: Epistaxis left side anterior versus posterior, septal ulcer Diagnosis considered but do not suspect: N/A My EKG interpretation: N/A Imaging independently reviewed and interpreted by myself: N/A External documents reviewed: N/A Test considered but not ordered:N/A ED course: Patient left-sided nasal bleed, after clot removed, noted septal ulcer left side there is no perforation. No active bleeding from the site. Nirmal-Synephrine on cotton was placed with clamps. 1200: Reevaluation after 45 minutes, cotton was removed there was a clot behind this, there is mild bleeding posteriorly. Cannot see this directly. 7.5 cm rapid Rhino placed in the left side with gentle balloon pressure. We will continue to evaluate. 1335: Multiple reevaluations initially continued minimal bleed, the balloon was increased with pressure. However still reporting anterior bleeding. Rapid Rhino was removed, new 1 replaced, no longer Rhino however this was pushed in at least 1 cm further. Balloon was pumped up with no difficulties. We will continue to monitor. 1430: No rebleeds ambulating in the department with no issues. Patient can follow ENT for packing removal in 3 days along with his ulcer evaluation and the septum. Discussed that we cannot get in with ENT in 3 days return to ED for packing removal. He understands. All questions were answered. Re-evaluation: stable Disposition discussed with patient/family/significant other: Patient Case discussed with consulting clinician: N/A This note was generated with [employer] dictation software. It may contain incorrect words, spelling, and punctuation that were not noted in checking the note before signing. Discharge Plan Triage Chief Complaint: Nosebleed ED Provider: Esa Calderon Dx/Rx/DC Orders Clinical Impression: Left-sided epistaxis, Nasal septal ulcer Instructions: ED Epistaxis (Adult) Prescriptions: No Action aspirin [Adult Low Dose Aspirin] 81 mg tablet,delayed release (DR/EC) 81 mg PO BID allopurinol 100 mg tablet 100 mg PO DAILY finasteride 5 mg tablet 5 mg PO DAILY Qty: 90 cinacalcet 60 mg tablet 60 mg PO DAILY cholecalciferol (vitamin D3) 100 mcg (4,000 unit) tablet 100 mcg PO DAILY clopidogrel 75 mg tablet 75 mg PO DAILY Qty: 90 3RF pravastatin 40 mg tablet 40 mg PO DAILY Qty: 90 3RF lisinopril 2.5 mg tablet 2.5 mg PO DAILY Qty: 90 3RF metoprolol succinate 50 mg tablet extended release 24 hr 50 mg PO BID Qty: 180 3RF tamsulosin 0.4 MG capsule 0.4 mg PO DAILY metformin 500 MG tablet extended release 24 hr 500 mg PO BID nitroglycerin 0.4 mg tablet, sublingual 0.4 mg SUBLINGUAL Q5-15M Qty: 25 3RF Primary Care Provider: Thomas Jara Referrals: Thomas Jara MD [Primary Care Provider] - Alan Vela MD [Med Staff - Active Staff] - 3-5 Days Activity Restrictions/Additional Instructions: Chronic ulcer left septum. 7.5 cm rapid Rhino placed to left nose. Follow-up with ENT in 3 days for removal and evaluation. If unable to get in in 3 days return to ED for packing removal. Disposition Disposition: Home, Self Care
[2023-06-13 14:44] VITALS: BP 150/70; PULSE 76; RESP 18; O2SAT 99
== END 2023-06-13 14:45 | disposition home or self-care (01) ==
PROVIDERS: Emergency Provider Emergency Medicine; PCP Family Medicine; Visit Provider Emergency Medicine
DX: R04.0 Epistaxis (principal); E11.9 Type 2 diabetes mellitus without complications; J34.0 Abscess, furuncle and carbuncle of nose; E78.5 Hyperlipidemia, unspecified; I25.10 Atherosclerotic heart disease of native coronary artery without angina pectoris; I10 Essential (primary) hypertension; I25.2 Old myocardial infarction; E66.9 Obesity, unspecified; Z68.27 Body mass index [BMI] 27.0-27.9, adult; Z95.1 Presence of aortocoronary bypass graft; Z95.5 Presence of coronary angioplasty implant and graft; Z79.02 Long term (current) use of antithrombotics/antiplatelets; Z79.82 Long term (current) use of aspirin; Z79.84 Long term (current) use of oral hypoglycemic drugs; Z79.899 Other long term (current) drug therapy; Z87.891 Personal history of nicotine dependence
CPT/HCPCS: 30903; 30905; 99282

== ENCOUNTER 2023-07-23 09:48 | Emergency (ER) | payer MEDICARE, SELFPAY ==
[2023-07-23 09:49] VITALS: BP 142/80; PULSE 80; RESP 14; TEMP 36.2; O2SAT 96; BMI 27.0
--- NOTE | 2023-07-23 10:36 | EX.ED.VIS.EY ---
HPI History of Present Illness Chief Complaint: Eye Problem Informant: patient and family Narrative Narrative: Presents with blood in the eyes after waking. He states woke up eyes are itching he rubbed it which improved looked in mirror saw blood around his eyes. Reports blurry vision. Denies any significant pain. He wears reading glasses. He is seen [facility] Dr. Jarquin 3 years ago Recommended cataracts. Patient is on aspirin and Plavix history of coronary disease with stenting. He has had little blood in his eyes in the past that resolved however this more significant. 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) Postoperative atrial fibrillation (06/2010) Tachycardia Type 2 diabetes mellitus Home Medications aspirin 81 mg tablet,delayed release (Adult Low Dose Aspirin) 81 mg PO BID 11/02/17 [History Last Taken Unknown] metformin 500 mg tablet,extended release 24 hr 500 mg PO BID 05/17/18 [History Last Taken Unknown] tamsulosin 0.4 mg capsule 0.4 mg PO DAILY 05/17/18 [History Last Taken Unknown] finasteride 5 mg tablet 5 mg PO DAILY #90 tabs 07/18/19 [History Last Taken Unknown] nitroglycerin 0.4 mg sublingual tablet 0.4 mg sublingual Q5-15M #25 tabs 03/01/22 [Rx Last Taken Unknown] allopurinol 100 mg tablet 100 mg PO DAILY 09/01/22 [History Last Taken Unknown] cholecalciferol (vitamin D3) 100 mcg (4,000 unit) tablet 100 mcg PO DAILY 09/01/22 [History Last Taken Unknown] cinacalcet 60 mg tablet 60 mg PO DAILY 09/01/22 [History Last Taken Unknown] clopidogrel 75 mg tablet 75 mg PO DAILY #90 tabs 09/01/22 [Rx Last Taken Unknown] lisinopril 2.5 mg tablet 2.5 mg PO DAILY #90 tabs 09/01/22 [Rx Last Taken Unknown] metoprolol succinate 50 mg tablet,extended release 24 hr 50 mg PO BID #180 tabs 09/01/22 [Rx Last Taken Unknown] pravastatin 40 mg tablet 40 mg PO DAILY #90 tabs 09/01/22 [Rx Last Taken Unknown] Allergy/AdvReac Type Severity Reaction Status Date / Time codeine AdvReac Other Verified 07/23/23 09:49 Family History Father CHF (congestive heart failure) Mother Cancer Lung CA Brother Hypertension Multiple sclerosis Brother Hx of CABG Brother Hx of CABG Diabetes Brother Multiple sclerosis Sister CHF (congestive heart failure) Son Diabetes Surgical History Amputation finger (~1958) H/O coronary artery bypass surgery (06/10/10) History of cataract extraction (~05/2018) History of coronary artery stent placement (09/24/09) Social History Smoking Status: Former smoker how long ago did patient quit smokin years ago alcohol intake: never substance use type: does not use diet: low salt caffeine: Yes Type: coffee Number of servings: 1 what type of physical activity do you participate in: none ROS ROS ED Constitutional Constitutional ED: Denies chills, fever(s) or sweats Eyes Eyes: Reports blurry vision; Denies change in vision ENT ENT ED: Denies dysphagia or sore throat Cardiovascular Cardiovascular: Denies chest pain, leg edema, palpitations or racing heartbeat Respiratory/Chest Respiratory/Chest: Denies cough, dyspnea or dyspnea on exertion Gastrointestinal Gastrointestinal: Denies abdominal pain, diarrhea, nausea or vomiting Genitourinary Genitourinary ED: Denies dysuria, hematuria or urinary frequency Musculoskeletal Musculoskeletal: Denies back pain, extremity pain or neck pain Integumentary Denies rash or wounds Neurologic Neurologic: Denies headache(s), paresthesias or weakness EXAM Physical Exam Const Vital Signs: 07/23/23 09:49 Temperature 97.2 F L Temperature Source Temporal Pulse Rate 80 Respiratory Rate 14 Blood Pressure 142/80 H Blood Pressure Mean 100 Pulse Ox 96 Oxygen Delivery Method Room Air Positive well nourished and well developed General Appearance ED: well developed and NAD HEENT Reports moist mucous membranes normocephalic and atraumatic Eyes PERRL, EOMs intact bilaterally and conjunctivae normal Eyes Narrative: Visual acuity 20/50 OD, 20/50 OS, 20/25 OU. Slit-lamp examination and gross examination with diffuse subconjunctival hemorrhage, no corneal involvement. No hyphema. General Eye ED: Yes normal appearance of both eyes Neck no lymphadenopathy and supple General: Negative for tenderness Chest Wall Chest: Negative for tenderness Resp normal respiratory effort and normal air movement Effort and Inspection: symmetric chest movement; Negative for respiratory distress Cardio regular rate, regular rhythm and no murmurs Peripheral Pulses: pulses 2+ throughout GI normal to inspection, nondistended, normoactive bowel sounds and non-tender Palpation: Negative for guarding or rebound tenderness present Back/Spine no CVA tenderness and no thoracic nor lumbar tenderness Extremity normal to inspection General Extremety ED: Negative for edema or tenderness General Extremity: Negative for edema Neuro oriented x3 and no sensory deficits noted Sensorium / Orientation: awake and alert Skin no rashes or lesions noted and no wounds MDM MDM MDM Narrative Medical decision making narrative: Interventions / MDM: Differential diagnosis: Traumatic subconjunctival hemorrhage Diagnosis considered but do not suspect: N/A My EKG interpretation: N/A Imaging independently reviewed and interpreted by myself: N/A External documents reviewed: N/A Test considered but not ordered:N/A ED course: Patient stopped hemorrhage after rubbing his eyes. He is on aspirin and Plavix. Visual acuity stable bilateral 20/50. No hyphema. No pain. Pupils equal and reactive. Discussed that this would resolve with time. I did also discuss with on-call ophthalmology Dr. Santiago as he is established with them. He will call the office tomorrow to be seen for outpatient evaluation. Re-evaluation: stable Disposition discussed with patient/family/significant other: Patient and family Case discussed with consulting clinician: Ophthalmology This note was generated with [employer] dictation software. It may contain incorrect words, spelling, and punctuation that were not noted in checking the note before signing. Discharge Plan Triage Chief Complaint: Eye Problem ED Provider: Esa Calderon Dx/Rx/DC Orders Clinical Impression: Traumatic subconjunctival hemorrhage of left eye Instructions: ED Subconjunctival Hemorrhage Prescriptions: No Action aspirin [Adult Low Dose Aspirin] 81 mg tablet,delayed release (DR/EC) 81 mg PO BID allopurinol 100 mg tablet 100 mg PO DAILY finasteride 5 mg tablet 5 mg PO DAILY Qty: 90 cinacalcet 60 mg tablet 60 mg PO DAILY cholecalciferol (vitamin D3) 100 mcg (4,000 unit) tablet 100 mcg PO DAILY clopidogrel 75 mg tablet 75 mg PO DAILY Qty: 90 3RF pravastatin 40 mg tablet 40 mg PO DAILY Qty: 90 3RF lisinopril 2.5 mg tablet 2.5 mg PO DAILY Qty: 90 3RF metoprolol succinate 50 mg tablet extended release 24 hr 50 mg PO BID Qty: 180 3RF tamsulosin 0.4 MG capsule 0.4 mg PO DAILY metformin 500 MG tablet extended release 24 hr 500 mg PO BID nitroglycerin 0.4 mg tablet, sublingual 0.4 mg SUBLINGUAL Q5-15M Qty: 25 3RF Primary Care Provider: Thomas Jara Referrals: Thomas Jara MD [Primary Care Provider] - Alvaro Santiago MD [Med Staff - Active Staff] - 1 Day Activity Restrictions/Additional Instructions: Call office at 8 AM tomorrow to be seen tomorrow. Discussed with Dr. Santiago from the ED. Disposition Disposition: Home, Self Care Discharge Date/Time: 07/23/23 10:52
== END 2023-07-23 10:52 | disposition home or self-care (01) ==
PROVIDERS: Emergency Provider Emergency Medicine; PCP Family Medicine; Visit Provider Emergency Medicine
DX: H11.32 Conjunctival hemorrhage, left eye (principal); E11.9 Type 2 diabetes mellitus without complications; I25.10 Atherosclerotic heart disease of native coronary artery without angina pectoris; Z95.5 Presence of coronary angioplasty implant and graft; E78.5 Hyperlipidemia, unspecified; I10 Essential (primary) hypertension; Z87.891 Personal history of nicotine dependence; Z79.02 Long term (current) use of antithrombotics/antiplatelets; Z79.82 Long term (current) use of aspirin; I25.2 Old myocardial infarction; Z79.84 Long term (current) use of oral hypoglycemic drugs
CPT/HCPCS: 92285; 99283; A4216

== ENCOUNTER 2025-04-25 12:55 | Emergency (ER) | payer MEDICARE, SELFPAY ==
[2025-04-25 12:56] VITALS: BP 113/77; PULSE 68; RESP 18; TEMP 36.6; O2SAT 92
== END 2025-04-25 13:36 | disposition left against medical advice (07) ==
LOC: ED 13:53
PROVIDERS: PCP Family Medicine
DX: R69 Illness, unspecified (principal)
CPT/HCPCS: 99281